=== PATIENT | female | born 1945 | race Caucasian/White ===

== ENCOUNTER 2016-04-24 05:17 | Day surgery (SDC) | payer OTHER ==
[~2016-04-24] VITALS: Ht 165.1 cm; Wt 88.7 kg
--- NOTE | ~2016-04-24 | EKG ---
[address] [address] ELECTROCARDIOGRAM REPORT Name: CAMRYN BHAT Room #: DEP [facility]#: [id number] Admission: 04/24/16 Attend Phys: Taiwo Corrales MD Discharge: 04/24/16 Date of : 49 Report #: [id number] THIS REPORT FOR: //name// [facility] Test Date: 2016-04-24 Test Time: 10:38:31 Pat Name: CAMRYN BHAT Department: Room: 150 9 Gender: F Tv Production Assistant: ERASMO : [id number] Requested By: Taiwo Corrales Order Number: [id number] MD: Julito Colón Measurements Intervals [place] Rate: 55 P: 26 KS: 135 QRS: 2 QRSD: 99 T: 28 QT: 467 QTc: 447 Interpretive Statements Sinus rhythm No previous ECG available for comparison Electronically Signed On 04-24-2016 14:59:06 [employer] by Julito Colón [email or web address] <ELECTRONICALLY SIGNED> By: Julito Colón MD 04/24/16 1459 1038 Katrin Colón MD /FRANCIS
--- NOTE | ~2016-04-24 | O ---
[facility] [place] [address] OPERATIVE REPORT Name: CAMRYN BHAT Room #: DEP [facility] Opal#: [id number] Admission: 04/24/16 Attend Phys: Taiwo Corrales MD Discharge: 04/24/16 Date of : 49 Report #: [id number] THIS REPORT FOR: //name// CC: Alexandra Corrales DATE OF SERVICE: 04/24/2016 PREOPERATIVE DIAGNOSIS: Left knee patellofemoral degenerative joint changes. POSTOPERATIVE DIAGNOSES: Left knee patellofemoral degenerative joint changes with lateral meniscus tear and medial femoral chondromalacia. PROCEDURE: Left knee arthroscopy, chondroplasty medial femoral condyle, partial lateral meniscectomy and chondroplasty patella and trochlea. We also an inferior patellar spur. SURGEON: Taiwo Corrales MD. ANESTHESIA: General. INDICATIONS: See hospital H and P. DESCRIPTION OF PROCEDURE: After adequate general anesthesia had been obtained, the patient's left lower extremity was prepped and draped in the usual meticulous sterile fashion. Limb was exsanguinated with gravity and tourniquet inflated to 350 torr. A superomedial portal established by first infiltrating with 0.5% Naropin, then making a stab incision with 11 blade. The inflow cannula was placed. Knee was insufflated with fluid. Anterolateral and anteromedial portals were established utilizing the same technique. Complete diagnostic arthroscopy was performed. Medial compartment demonstrated grade 2 chondromalacia diffusely on medial femoral condyle. The unstable chondral fragments were smoothed with a shaver. Meniscus was intact. Lateral compartment demonstrated a small radial tear. Lateral meniscus was debrided with the shaver to a stable rim. Chondral surfaces were preserved. Cruciate ligaments were intact. Patellofemoral compartment demonstrated there were advanced degenerative changes. She had grade 4 changes along the lateral trochlea and lateral facet extending onto the median ridge. The unstable chondral fragments of the periphery of these lesions were smoothed with a shaver. Additionally, she had a spur inferior patella, this seemed to engage with flexion and so this was removed with a bur. At this time, the knee was irrigated copiously, 0.5% Naropin infiltrated in the [address] [address] OPERATIVE REPORT Name: NADIYA MCDONNELLCAMRYN J Room #: DEP [facility] Opal#: [id number] Admission: 04/24/16 Attend Phys: Taiwo Corrales MD Discharge: 04/24/16 Date of : 49 Report #: [id number] knee. The portals were closed with 4-0 nylon. Sterile compressive was complied. Tourniquet then deflated. <ELECTRONICALLY SIGNED> By: Taiwo Corrales MD 05/08/16 1420 1232 1301 Taiwo Corrales MD /nt
[~2016-04-24 05:17] MED LIST: ALLOPURINOL 30300 M2 PO; ATENOLOL 100MG100 MG PO; DOXYCYCLINE HYC20 MG PO; HYDROCHLOROTHIA25 M1 PO; SIMVASTATIN10 MG PO; WOMEN'S DAILY1 EAC2 PO; XALATAN2.5 ML OPHTHALMIC; ZOCOR20 MG PO
[2016-04-24 10:31] LABS: CALCIUM 8.9 mg/dL (8.5-10.1); CREATININE 0.8 mg/dL (0.6-1.3); POTASSIUM 3.9 mmol/L (3.5-5.1)
[2016-04-24 10:48] VITALS: BP 118/69
[2016-04-24 12:59] VITALS: BP 118/69
== END 2016-04-24 13:20 | disposition home or self-care (01) ==
LOC: TBA 05:17 → OR 05:17 → EDSTATUS 08:05 → OR 08:16 → PRE 08:31 → OR 13:20 → PRE 13:41
PROVIDERS: Orthopaedic Surgery
DX: M23.201 Derangement of unspecified lateral meniscus due to old tear or injury, left knee (principal); H40.9 Unspecified glaucoma; M94.262 Chondromalacia, left knee; I10 Essential (primary) hypertension; E78.00 Pure hypercholesterolemia, unspecified; M10.9 Gout, unspecified; M17.9 Osteoarthritis of knee, unspecified; Z90.710 Acquired absence of both cervix and uterus; Z90.49 Acquired absence of other specified parts of digestive tract; Z87.891 Personal history of nicotine dependence
CPT/HCPCS: 10086; 50010; 50101; 50405; 50612; 51038; 54170; 56526; 62110; 62900; 70005

== ENCOUNTER → 2020-04-04 | Outpatient (CLI) | payer OTHER | LOC: LAB 12:12 | PROVIDERS: ATTEND Specialist | DX: Z01.812 Encounter for preprocedural laboratory examination (principal); Z20.828 Contact with and (suspected) exposure to other viral communicable diseases ==

== ENCOUNTER → 2020-04-08 | Outpatient (CLI) | payer OTHER ==
[~2020-04-08] VITALS: Ht 165.1 cm; Wt 71.7 kg
[~2020-04-08] MED LIST changes: +LISINOPRIL40 MG PO
--- NOTE | 2020-04-09 10:50 | P ---
[facility] [place] [address] PROCEDURE REPORT Name: CAMRYN BHAT Room #: [facility] Opal#: [id number] Admission: 04/08/20 Attend Phys: Mahendra More Discharge: Date of : 49 Report #: [id number] THIS REPORT FOR: cc: Alexandra Clark MD, Sara A. MD McElhinney, Christian C. MD ~ DATE OF SERVICE: 04/08/2020 PROCEDURE PERFORMED: Colonoscopy. HISTORY OF PRESENT ILLNESS: The patient is a 74-year-old female who presents today for routine screening colonoscopy. She denies any symptoms. No family history of colon cancer. DESCRIPTION OF PROCEDURE: The risks and benefits of the procedure were explained to the patient, those risks including but not limited to bleeding, perforation and the risk of sedation. She understood these risks and gave informed consent. Sedation was given using propofol per anesthesia. Next, a digital rectal exam was initially performed, which was normal. Next, using a standard Olympus colonoscope, the scope was placed in the patient's anus and advanced under direct vision to the cecum. The overall prep was good. The cecum and ileocecal valve were normal in appearance. A few small scattered diverticula were noted in the ascending colon. No evidence of inflammation, otherwise normal. The transverse and descending colon were normal. A few further diverticula noted in the sigmoid colon, no evidence of inflammation, otherwise normal. The rectal mucosa was normal. On retroflexion, no abnormalities were noted. The scope was then withdrawn and the procedure terminated. The patient tolerated the procedure well. IMPRESSION: 1. Diverticulosis. 2. Otherwise, normal colonoscopy. RECOMMENDATIONS: Repeat colonoscopy in 10 years. Thank you for allowing me to participate in her care. <ELECTRONICALLY SIGNED> By: Mahendra Chavis MD 04/09/20 1050 1055 1245 Mahendra Chavis MD /nt
== END | disposition home or self-care (01) ==
LOC: GI 07:52
PROVIDERS: ATTEND Specialist
DX: Z12.11 Encounter for screening for malignant neoplasm of colon (principal); K57.30 Diverticulosis of large intestine without perforation or abscess without bleeding; I10 Essential (primary) hypertension; E78.00 Pure hypercholesterolemia, unspecified; H40.9 Unspecified glaucoma; M10.9 Gout, unspecified; Z98.890 Other specified postprocedural states; Z79.899 Other long term (current) drug therapy; Z87.891 Personal history of nicotine dependence; Z90.710 Acquired absence of both cervix and uterus; Z90.49 Acquired absence of other specified parts of digestive tract
CPT/HCPCS: 62110; 62900